=== PATIENT | female | born 1960 | race Caucasian/White ===

== ENCOUNTER 2018-03-18 15:37 | Emergency (ER) | END 2018-03-18 17:46 | disposition home or self-care (01) ==

== ENCOUNTER 2019-02-09 21:03 | Inpatient (IN) | payer BC ==
[~2019-02-09] VITALS: Ht 149.9 cm; Wt 66.4 kg
[~2019-02-09 21:03] MED LIST: CIPR500T4 PO; DOXY-214 PO; ERYT1OIN6 LEFT EYE; IBUP-1544 PO; METR500T PO; MICO45CR10 VAG
[2019-02-09] MEDS ORDERED: ONDANSETRON 4 MG INJ IV STA (22:11)
[2019-02-09] MEDS ORDERED: SOD CHLORIDE 0.9% 1,000 ML IV STA (22:11)
[2019-02-09] MEDS ORDERED: morphine 2 MG INJ IV STA (22:11)
[2019-02-09] MEDS ORDERED: KETOROLAC 30 MG INJ IV STA (23:20)
[2019-02-09] MEDS ORDERED: metroNIDAZOLE 500 MG/NS (PMX) 100 ML IVPB STA (23:53)
[2019-02-09] MEDS ORDERED: CIPROFLOXACIN 400MG/D5W 200 ML IVPB STA (23:53)
[2019-02-10] MEDS ORDERED: ONDANSETRON 4 MG INJ IV PRN ×2 (00:30→01:30)
[2019-02-10] MEDS ORDERED: ACETAMINOPHEN 325 MG TAB PO PRN ×2 (00:30→01:30)
[2019-02-10] MEDS ORDERED: NACL 0.9% 3 ML SYG IV SCH (00:30)
[2019-02-10] MEDS ORDERED: morphine 2 MG INJ IV PRN (00:30)
[2019-02-10 02:40] VITALS: Ht 149.9 cm; Wt 66.4 kg
[2019-02-10] MEDS: SOD CHLORIDE 0.9% 1,000 ML IV SCH ×3 (03:27→17:13)
[2019-02-10 07:40] VITALS: BP 121/64; RESP 19
[2019-02-10] MEDS: FAMOTIDINE 20 MG INJ IV SCH ×2 (08:42→20:20)
[2019-02-10] MEDS ORDERED: ENOXAPARIN 30 MG/0.3 ML SYG SC SCH (09:00)
[2019-02-10] MEDS: CIPROFLOXACIN 400MG/D5W 200 ML IVPB SCH ×2 (11:39→20:20)
[2019-02-10] MEDS ORDERED: HYDROCODONE/APAP (5/325) TAB PO PRN (12:30)
[2019-02-10] MEDS: HYDROmorphONE 0.5 MG/0.5 ML SYG IV PRN (14:14)
[2019-02-10] MEDS: metroNIDAZOLE 500 MG/NS (PMX) 100 ML IVPB SCH ×3 (14:14→23:46)
[2019-02-10 14:50] VITALS: BP 118/68; RESP 18
[2019-02-10 20:15] VITALS: BP 120/68; PULSE 59; RESP 18
[2019-02-11] MEDS: HYDROmorphONE 0.5 MG/0.5 ML SYG IV PRN (01:18)
[2019-02-11 02:05] VITALS: BP 118/65; PULSE 64; RESP 19
[2019-02-11] MEDS: metroNIDAZOLE 500 MG/NS (PMX) 100 ML IVPB SCH ×4 (05:04→23:01)
[2019-02-11] MEDS: SOD CHLORIDE 0.9% 1,000 ML IV SCH ×3 (06:35→23:06)
[2019-02-11 07:41] VITALS: BP 121/62; PULSE 68; RESP 19
[2019-02-11] MEDS: FAMOTIDINE 20 MG INJ IV SCH ×2 (09:15→21:11)
[2019-02-11] MEDS: CIPROFLOXACIN 400MG/D5W 200 ML IVPB SCH ×2 (09:16→21:11)
[2019-02-11] MEDS ORDERED: MICONAZOLE 2% 45 GM VAG CR VAG ONE (12:00)
[2019-02-11] MEDS ORDERED: DIPHENHYDRAMINE 50 MG INJ IV PRN (15:00)
[2019-02-11 15:59] VITALS: BP 119/64; PULSE 74; RESP 19
[2019-02-11 19:35] VITALS: BP 116/69; PULSE 59; RESP 18
[2019-02-11] MEDS: MICONAZOLE 2% 45 GM VAG CR VAG SCH (21:44)
[2019-02-12 02:05] VITALS: BP 128/63; PULSE 58; RESP 18
[2019-02-12] MEDS: metroNIDAZOLE 500 MG/NS (PMX) 100 ML IVPB SCH ×3 (05:22→17:34)
[2019-02-12 07:46] VITALS: BP 110/51; PULSE 54; RESP 18
[2019-02-12] MEDS: FAMOTIDINE 20 MG INJ IV SCH ×2 (08:42→20:52)
[2019-02-12] MEDS: CIPROFLOXACIN 400MG/D5W 200 ML IVPB SCH ×2 (08:42→20:52)
[2019-02-12] MEDS: SOD CHLORIDE 0.9% 1,000 ML IV SCH ×2 (11:27→22:34)
[2019-02-12 19:34] VITALS: BP 122/62; PULSE 56; RESP 16
[2019-02-12] MEDS: MICONAZOLE 2% 45 GM VAG CR VAG SCH (20:54)
[2019-02-13] MEDS: metroNIDAZOLE 500 MG/NS (PMX) 100 ML IVPB SCH ×3 (00:06→12:16)
[2019-02-13 01:53] VITALS: BP 124/64; PULSE 58; RESP 16
[2019-02-13 08:21] VITALS: BP 137/74; PULSE 55; RESP 18
[2019-02-13] MEDS: CIPROFLOXACIN 400MG/D5W 200 ML IVPB SCH (08:36)
[2019-02-13] MEDS: FAMOTIDINE 20 MG INJ IV SCH (08:37)
[2019-02-13 15:44] VITALS: BP 118/68; PULSE 59; RESP 18
[2019-02-13] MEDS ORDERED: CIPROFLOXACIN 500 MG TAB PO SCH (18:00)
[2019-02-13] MEDS ORDERED: metroNIDAZOLE 500 MG TAB PO SCH (22:00)
== END 2019-02-13 18:10 | disposition home or self-care (01) | DRG 392 ==
LOC: FTE 21:03 → MS1 02-10 01:21
PROVIDERS: ADMIT Internal Medicine; ATTEND Internal Medicine
DX: K57.20 Diverticulitis of large intestine with perforation and abscess without bleeding (principal); N13.30 Unspecified hydronephrosis; R65.10 Systemic inflammatory response syndrome (SIRS) of non-infectious origin without acute organ dysfunction; I10 Essential (primary) hypertension; F41.9 Anxiety disorder, unspecified; K29.70 Gastritis, unspecified, without bleeding; M79.7 Fibromyalgia; Z90.710 Acquired absence of both cervix and uterus; R30.0 Dysuria; R39.15 Urgency of urination
CPT/HCPCS: 36415; 74176; 80048; 80053; 81001; 83036; 83690; 85025; 85610; 85730; 87081; 87086; 96374; 96375; 96376; J0744; J1170; J1200; J1885; J2270; J2405; J7030